=== PATIENT | female | born 1970 | race Caucasian/White ===

== ENCOUNTER → 2023-09-01 08:39 | Outpatient (REF) | payer OTHER, SELFPAY | LOC: WDC 08:39 | PROVIDERS: ATTENDING PHYSICIAN Obstetrics & Gynecology; FAMILY PHYSICIAN Family Medicine | DX: R92.2 Inconclusive mammogram (principal) | CPT/HCPCS: 76641 ==

== ENCOUNTER 2023-10-24 18:23 | Inpatient (IN) | payer OTHER, SELFPAY ==
[2023-10-24 15:24] VITALS: BP 180/99
[2023-10-24 16:01] LABS: Urine Albumin Negative (Neg - Trace); Urine Bilirubin Negative (Negative); Urine Character Clear (Clear); Urine Color Yellow; Urine Glucose Negative (Negative); Urine Ketone Negative (Negative); Urine Leukocyte Negative (Negative); Urine Nitrite Negative (Negative); Urine Occult Blood 4+ (Negative); Urine Specific Gravity 1.005 (<1.030); Urine Urobilinogen Negative (Neg - 1+)
[2023-10-24 16:01] LABS: % Basophils 0.7 % (0-2); % Eosinophils 1.1 % (0-6); % Immature Granulocytes 0.2 % (0-0.5); % Lymphocytes 27.7 % (20.5-51.1); % Monocytes 8.9 % (1.7-9.3); % Neutrophils 61.4 % (42.2-75.2); Absolute Eosinophils 0.1 10^3/uL (0-0.7); Absolute Lymphocytes 1.5 10^3/uL (1.2-3.4); Absolute Monocytes 0.5 10^3/uL (0.1-0.6); Absolute Neutrophils 3.3 10^3/uL (1.4-6.5); Hematocrit 36.9 % (37.0-47.0); Hemoglobin 12.7 g/dL (12.0-16.0); Mean Corp Hgb Conc. 34.4 g/dL (33.0-37.0); Mean Corpuscular Hgb 28.5 pg (27.0-31.0); Mean Corpuscular Volume 82.7 fL (81.0-99.0); Mean Platelet Volume 9.8 fL (7.4-10.4); Nucleated Red Blood Cells % 0 %; Platelet Count 266 10^3/uL (130-400); Red Blood Cell Count 4.46 10^6/uL (4.20-5.40); Red Cell Dist. Width 12.8 % (11.5-14.5); White Blood Cell Count 5.4 10^3/uL (4.8-10.8)
[2023-10-24 16:10] LABS: HCG, Serum Qualitative Screen Negative
[2023-10-24 16:11] LABS: ALT (SGPT) 21 U/L (0-35); AST (SGOT) 25 U/L (14-36); Albumin 4.5 g/dl (3.5-5.0); Alkaline Phosphatase 112 U/L (38-126); Blood Urea Nitrogen 14 mg/dl (7-17); Calcium 9.8 mg/dl (8.4-10.2); Carbon Dioxide 25 mmol/L (22-30); Chloride 100 mmol/L (98-107); Glucose 139 mg/dl (70-99); Sodium 136 mmol/L (135-145); Total Bilirubin 0.5 mg/dl (0.2-1.3); Total Protein 7.5 g/dl (6.3-8.2); eGFR > 60.00
[2023-10-24 16:18] LABS: Urine White Cell 0-2 /HPF (0-5)
[2023-10-24 16:19] LABS: Urine Bacteria Few (Negative)
[2023-10-24 16:23] LABS: Troponin I < 0.012 ng/ml
[2023-10-24 16:34] VITALS: BP 140/89
[2023-10-24 16:36] VITALS: BMI 28.4
[2023-10-24 16:41] LABS: TSH Reflex To Free T4 1.12 uIU/ml (0.47-4.68)
--- NOTE | 2023-10-24 17:25 | ED.GENMED ---
History of Present Illness
General
Chief Complaint: Fainting/Passed Out
Source: patient, spouse and ambulance crew
Exam Limitations: none
Time Seen by Provider: 10/24/23 16:25
Nursing documentation reviewed up to this point in time: agreed with
Travel History
Have you had any contact with someone who has COVID-19?: No
Do you have any symptoms of coronavirus? Fever > 100 degrees, chills, cough, shortness of breath, sore throat, loss of taste or smell, muscle aches, or headache?: No
History of Present Illness
History of Present Illness:
53-year-old female with no reported chronic medical issues presents to the emergency room for evaluation after presyncopal event complaining of palpitations. Patient reports that she was eating lunch with her daughters and had sudden onset of
lightheadedness and felt as if she was going to pass out. She says she felt like her heart was racing and beating very hard. She says that she had her Apple Watch on and it alerted her that her heart rate was over 130. Symptoms did not pass after
a few minutes and so EMS was called to the scene. On examining her health alessandro on her phone she seems to have had elevated heart rate to a max of 130 with tachycardia lasting for about an hour this afternoon. Unfortunately no rhythm strips taken
for review. Here in the emergency room she says she is still having occasional palpitations but she normally feels dizzy. She did not have and has not had any chest pain. She denies shortness of breath. She denies any edema in her legs. She
says she has had intermittent palpitations for the past few months and in fact had an outpatient echocardiogram in July that she was told was reassuring.
Review of Systems
Review of Systems
All Other Systems: ROS reviewed and negative except as documented in HPI and ROS
Constitutional: Denies fever or chills
EENT: Denies sore throat or runny nose
Respiratory: Denies cough or trouble breathing
Cardiac: Reports palpitations and syncope (Presyncope); Denies chest pain or diaphoresis
ABD/GI: Denies abdominal pain, nausea or vomiting
: Denies flank pain
Musculoskeletal: Denies edema, neck pain or back pain
Neurological: Reports dizzy; Denies headache, weakness or numbness
Phy Exam
Physical Exam
Physical Exam:
General: Awake, alert, oriented x3; anxious but no acute distress
Head: Normocephalic, atraumatic
Eyes: Conjunctiva normal, EOMI
Throat: Airway intact, handling secretions
Neck: Trachea midline, supple without meningismus
Lungs: Clear to auscultation bilaterally, no wheezing, rales, rhonchi
Heart: Regular rate and rhythm with occasional ectopy, no murmurs, gallops, or rubs
Abd: Soft, non distended, nontender
Neuro: Cranial nerves grossly intact, speech fluid
Skin: no rash
Extremities: No edema in extremities, equal pulses in all extremities
Scores
Heart Failure Risk
Heart Failure Risk Score: Not Applicable
Heart Score for Chest Pain Patients
STEMI patient?: Not applicable
Withdrawal Assessment of Alcohol
Withdrawal Assessment Completed?: Not applicable
Course
Orders/Labs/Results
Orders:
Orders
10/24/23 15:24
Electrocardiogram (*1) Urgent
Reason for Study: Vertigo / Dizzy
EKG- Treatment ONCE
10/24/23 15:38
Test Result ONCE
10/24/23 15:44
Complete Blood Count/With Diff Urgent
TSH Reflex To Free T4 Urgent
Troponin I Urgent
10/24/23 15:45
Comprehensive Metabolic Panel Urgent
HCG, Serum Qualitative Screen Urgent
Urinalysis Reflex To Culture Urgent
Date Specimen was Collected: 10/24/23
Time Specimen was Collected: 15:38
Urine Microscopic Reflex Cult Urgent
10/24/23 17:15
CARDIOLOGY CONSULT Urgent
Consulting Provider: Art Guidry
Was physician already notified: Yes
Abnormal Lab Results
10/24/23 10/24/23
15:44 15:45
Hct 36.9 L %
(37.0-47.0)
Glucose 139 H mg/dl
(70-99)
Ur Occult Blood Reflex 4+ A
(Negative)
Urine RBC 7-10 A /HPF
(0-2)
Urine Bacteria (Reflex) Few A
(Negative)
10/24/23 15:44
10/24/23 15:45
Vital Signs
Initial and Last Documented VS:
Initial Vital Signs
Temp Pulse Resp BP Pulse Ox
36.8 C 85 20 180/99 100
10/24/23 15:24 10/24/23 15:24 10/24/23 15:24 10/24/23 15:24 10/24/23 15:24
Last Documented Vital Signs
Temp Pulse Resp BP Pulse Ox
36.8 C 78 16 140/89 99
10/24/23 15:24 10/24/23 16:45 10/24/23 16:45 10/24/23 16:34 10/24/23 16:45
MDM/Problems Addressed
Differential Diagnosis Includes:
PVCs, PACs, A-fib/flutter, SVT, panic attack
MDM/Problems Addressed:
53-year-old female presents to the emergency room for evaluation of palpitations and episode of presyncope associated with significant tachycardia. Symptoms improved on arrival here. She was hypertensive in triage normalized by my assessment rest
of vitals normal. EKG shows a sinus rhythm with some inferior lateral Q waves and scooped ST depressions�no priors available for comparison. Lab work sent off including a CBC and a CMP which were unremarkable. Her troponin is undetectable. hCG
negative. Thyroid studies normal. With tachycardia and abnormal EKG will plan for admission for observation on telemetry and cardiology consultation. Discussed with cardiology for consult. Discussed with hospitalist for admission.
Acute Exacerbation and/or Progression of Chronic Illness:
Acutely hypertensive
Acute Exacerbation and/or Progression of Chronic Illness: HTN
*Pulse Oximetry
Patient hypoxic: no
*EKG
Interpreted by ED Provider?: Yes
Heart Rate: 95
Rate: normal
Rhythm: sinus
[place]: normal axis
Interval: normal interval
QRS Pattern: normal QRS
Ischemia: non-specific ST changes
*Critical Care Note
Total Time (30-74mins, 75-104mins- exclusive of procedures): Not Applicable
Data Reviewed
Review of Other/Old Records Reveals: Labs and Records
Source: patient, spouse and ambulance crew
Patient Management
Discussion with other providers: Hospitalist (Discussed with hospitalist) and Renewable Energy Engineer (Discussed with cardiology)
Escalation/DeEscalation of care consider admission/obs:
Admission indicated
ED Attending Note
-
Portions of this chart may have been created with voice recognition software.� Occasional wrong word or��sound alike� substitutions may have occurred due to the inherent limitations of voice recognition software.
Discharge Plan
Departure
Patient Disposition: Admit
Date of Disposition: 10/24/23
Time of Disposition: 17:24
Admit to doctor: Do
Presentation/result/management discussed w/ accepting MD/DO: Hospitalist
Discharge Problem:
Pre-syncope, Heart palpitations, Abnormal EKG
Prescriptions:
No Action
Vitamins 1 TAB tablet
Referrals:
NONE,* [Family Provider] -
Interventions
Interventions:
*Risk Screen - Suicide Last Done: 10/24/23 16:36
*General Assessment Last Done: 10/24/23 16:36
*Neglect/Abuse Screening Last Done: 10/24/23 16:36
ED- Fall Risk Assessment Last Done: 10/24/23 16:36
*ED COVID-19 Vaccine History Last Done: 10/24/23 16:36
ED- Cardiac Assessment Last Done: 10/24/23 16:36
ED- Neurological Assessment Last Done: 10/24/23 16:36
--- NOTE | 2023-10-24 17:57 | HPS.HSE ---
Family Physician
-
Family Physician: Neelam Peters
Chief Complaint
-
palpitatations
History of Present Illness
53-year-old female no past medical history of presenting for palpitations and near syncopal episode while in a restaurant today. She has been having palpitations for the past several weeks without associated dizziness but today symptoms are more
severe. She felt like she was going to pass out and palpitations lasted for an hour as per her Apple Watch. She denies any chest pain or shortness of breath. Currently her heart rate is improved she feels tired but denies any other symptoms
currently.
She saw her primary care physician few weeks ago who performed EKG and found patient to have PACs and PVCs.
She had an echocardiogram last due to primary care physician hearing a murmur on examination but echocardiogram was unremarkable.
She denies any smoking, drugs or alcohol use.
Denies any family history of heart conditions.
Medical History
Past Medical History
Past Medical History: Reports None
Past Surgical History: Reports Other (Rotator cuff tear, right foot stress fracture, x 3, right shoulder surgery,)
Social History
Tobacco: Non-smoker
Alcohol: None
Drug: None
Family History
Family History: Not pertinent
Allergies / Home Medications
Allergies reflects when Allergies were last updated in [email or web address].
Home Medications with original date entered in [email or web address]
Allergy/Medication List:
Allergies
Allergy/AdvReac Type Severity Reaction Status Date / Time
oxycodone HCl [From Percocet] Allergy Intermediate Rash Verified 10/24/23 15:24
acetaminophen [From Percocet] Allergy Unknown Verified 10/24/23 15:24
Home Medications
multivitamin 1 tab PO DAILY 10/24/23
Review of Systems
-
History Source: Patient
A 12 point ROS was completed and negative except as noted: Yes
Constitutional: Reports No Symptoms
EENT: Reports No Symptoms
Respiratory: Reports See HPI
Cardiac: Reports See HPI
Abdomen/GI: Reports No Symptoms
: Reports No Symptoms
Musculoskeletal: Reports No Symptoms
Skin: Reports No Symptoms
Neurological: Reports No Symptoms
Endocrine: Reports No Symptoms
Hematologic/Lymphatic: Reports No Symptoms
Psych: Reports No Symptoms
Physical Exam
Vital Signs
Vital Signs
Temp Pulse Resp BP Pulse Ox
98.2 F 78 16 140/89 99
10/24/23 15:24 10/24/23 16:45 10/24/23 16:45 10/24/23 16:34 10/24/23 16:45
Physical Exam
General: Well Developed, Well Nourished and No Apparent Distress
HEENT: NormoCephalic, Moist mucous membranes and Atraumatic
Respiratory: Clear
Cardiac: S1/S2 and Regular Rhythm; No Murmur or Rub
GI: Soft, Non Tender, Non Distended and Normal Bowel Sounds; No Organomegaly
Rectal: Deferred by Provider
Musculoskeletal: No Clubbing, No Cyanosis and No Edema
Skin: No Rash
Neuro: Nonfocal/grossly intact
Laboratory Results
-
10/24/23 15:44
10/24/23 15:45
Laboratory Results
Total Bilirubin 0.5 mg/dl (0.2-1.3) 10/24/23 15:45
AST 25 U/L (14-36) 10/24/23 15:45
ALT 21 U/L (0-35) 10/24/23 15:45
Alkaline Phosphatase 112 U/L (38-126) 10/24/23 15:45
Troponin I < 0.012 ng/ml 10/24/23 15:44
Data Reviewed
-
Lab Data: Labs Reviewed by me
Old Records: Reviewed
Impression/Plan
-
IMPRESSION:
PLAN:
# Palpitations/presyncopal episode
# PACs/PVCs
-EKG shows normal sinus rhythm with ST elevations in lead V2
-Troponin negative
-Telemetry monitoring currently shows some PACs/PVCs
-Prior echo from July of last year shows EF of 55 to 60%
-TSH 1.12
-Check chest x-ray
-give dose of lopressor 25 mg
-Cardiology consulted
Full code
DVT prophylaxis�heparin
Regular diet
[2023-10-24] MEDS: LOPRESSOR 25 MG PO (18:30)
[2023-10-24 19:17] VITALS: BP 132/86
[2023-10-24 19:49] VITALS: BP 138/88; BMI 26.9
[2023-10-24] MEDS: HEPARIN 5000 UNITS SC (20:25)
[2023-10-24 23:09] VITALS: BP 116/69
[2023-10-25 03:24] VITALS: BP 105/64
--- NOTE | 2023-10-25 04:07 | DOWNTIME ---
There was a [employer] Client B[employer] Mechanic Downtime on 10/25/2023 from 0100 to 10/25/2023 at 0322. Downtime documentation of patient's care, including medication administrations, has been reconciled in the electronic record per guidelines. Refer to the
patient's paper chart under the miscellaneous tab to see printed paper medication records and downtime forms.
[2023-10-25 04:56] LABS: % Basophils 0.9 % (0-2); % Eosinophils 1.1 % (0-6); % Immature Granulocytes 0.2 % (0-0.5); % Lymphocytes 32.8 % (20.5-51.1); % Monocytes 10.9 % (1.7-9.3); % Neutrophils 54.1 % (42.2-75.2); Absolute Basophils 0.1 10^3/uL (0-0.2); Absolute Eosinophils 0.1 10^3/uL (0-0.7); Absolute Lymphocytes 1.8 10^3/uL (1.2-3.4); Absolute Monocytes 0.6 10^3/uL (0.1-0.6); Absolute Neutrophils 2.9 10^3/uL (1.4-6.5); Mean Corp Hgb Conc. 34.3 g/dL (33.0-37.0); Mean Corpuscular Hgb 28.7 pg (27.0-31.0); Mean Corpuscular Volume 83.7 fL (81.0-99.0); Mean Platelet Volume 10.2 fL (7.4-10.4); Nucleated Red Blood Cells % 0 %; Platelet Count 252 10^3/uL (130-400); Red Blood Cell Count 4.18 10^6/uL (4.20-5.40); Red Cell Dist. Width 12.9 % (11.5-14.5); White Blood Cell Count 5.4 10^3/uL (4.8-10.8)
[2023-10-25 05:32] LABS: ALT (SGPT) 20 U/L (0-35); AST (SGOT) 24 U/L (14-36); Albumin 3.7 g/dl (3.5-5.0); Alkaline Phosphatase 112 U/L (38-126); Blood Urea Nitrogen 14 mg/dl (7-17); Calcium 9.3 mg/dl (8.4-10.2); Carbon Dioxide 22 mmol/L (22-30); Chloride 103 mmol/L (98-107); Estimated Creatinine Clearance 89 ml/min; Glucose 107 mg/dl (70-99); Potassium 4.1 mmol/L (3.5-5.1); Sodium 135 mmol/L (135-145); Total Bilirubin 0.3 mg/dl (0.2-1.3); Total Protein 6.4 g/dl (6.3-8.2); eGFR > 60.00
--- NOTE | 2023-10-25 07:20 | W.PN.HOSP.TC ---
Today's Communication/Plan
-
Cardiology evaluation.
Assessment / Plan
Assessment / Plan
Physical exam:
General: Well Developed, Well Nourished and No Apparent Distress
HEENT: Normocephalic, Atraumatic and Moist Mucous Membranes
Respiratory: Clear to Auscultation; Negative Wheezes, Rales or Rhonchi
Cardiac: Regular Rhythm and S1/S2
GI: Soft, Nontender and Nondistended
Musculoskeletal: No Clubbing, No Cyanosis and No Edema
Neuro: Awake, Alert and Oriented
Psych: Calm
A/P:
# Palpitations/presyncopal episode
# PACs/PVCs
-EKG shows normal sinus rhythm with ST elevations in lead V2
-Review of watch shows some sinus tachycardia
-Troponin negative
-Telemetry monitoring currently shows some PACs/PVCs
-Prior echo from July of last year shows EF of 55 to 60%
-TSH 1.12
-Checked chest x-ray
-give dose of lopressor 25 mg
-Cardiology consulted--> recommended checking D-dimer, echocardiogram EKG, and second troponin. If workup negative possible discharge today with outpatient cardiac monitoring. Echocardiogram normal ejection fraction and no abnormalities, normal
second troponin, normal D-dimer. Cardiology clearing her for discharge.
Full code
DVT prophylaxis�heparin
Regular diet
Anticipated Discharge: Today
Subjective/Interval History
-
Date of Service: October 25, 2023
Patient with complaint of intermittent palpitations. Relatively asymptomatic this morning.
Objective Data
-
Labs:
Laboratory Results
10/25/23
03:59
WBC 5.4
Hgb 12.0
Hct 35.0 L
Plt Count 252
Sodium 135
Potassium 4.1
Chloride 103
Carbon Dioxide 22
BUN 14
Creatinine 0.8
Glucose 107 H
Calcium 9.3
Total Bilirubin 0.3
AST 24
ALT 20
Alkaline Phosphatase 112
Vital Signs:
Vital Signs
Temp Pulse Resp BP Pulse Ox
98.5 F 63 16 105/64 98
10/25/23 03:24 10/25/23 03:24 10/25/23 03:24 10/25/23 03:24 10/25/23 03:24
I&O
10/24/23 10/25/23 10/26/23
06:59 06:59 06:59
Intake Total 440 / 440
Balance 440 / 440
[2023-10-25 08:17] VITALS: BP 122/86
[2023-10-25] MEDS: HEPARIN 5000 UNITS SC (09:05)
[2023-10-25] MEDS: THERAGRAN 1 TABLET PO (09:05)
--- NOTE | 2023-10-25 10:06 | W.PN.CD ---
Addendum entered and electronically signed by Erwin Choi MD 10/25/23 17:49:
D-dimer, repeat troponin, echocardiogram, and repeat EKG all fine.
Patient located single-lead EKG strip obtained with symptoms in the restaurant. I reviewed that prescription. Sinus tachycardia in the 130s.
Etiology of her symptoms is still unclear but I do not suspect cardiac ischemia, arrhythmia, or pulmonary embolism. I do not think she needs further outpatient telemetry as she has the ability to monitor EKG strip as needed. Will ask her to see
Dr. Cid in routine follow-up in 3 months or sooner if needed.
Original Note:
Today's Communication / Plan
-
-
Consult to be dictated
-
Check D-Dimer, echo, second troponin and ekg today
If all negative then home with plans for outpatient telemetry
-
-
Impression / Plan
-
Presyncope => uncertain etiology
Palpitations => uncertain etiology
Abnl EKG => rightward axis, [id number] raises question of pulm embolus
Physical Exam
Vital Signs/Labs
Vital Signs
Temp Pulse Resp BP Pulse Ox
98.8 F 73 16 122/86 97
10/25/23 08:17 10/25/23 08:17 10/25/23 08:17 10/25/23 08:17 10/25/23 08:17
10/24/23 10/25/23 10/26/23
06:59 06:59 06:59
Actual Weight 86.319 kg
10/25/23 03:59
10/25/23 03:59
LAB Results
10/24/23
15:44
Troponin I < 0.012
Data Reviewed
-
Date of Service: October 25, 2023
--- NOTE | 2023-10-25 10:54 | CM ---
Initial assessment completed with patient who lives with her and 3 children (16,15,12 y/o) in a 2 story home with basement and 3 steps to enter, B/B on with 1/2 bath on . 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 No DME or
in-home services. Pharmacy is [facility] in [place] and PCP is Dr. Neelam Weldon. Anticipate home with no needs.
[2023-10-25 11:11] LABS: D-Dimer 0.33 ug/mlFEU (0.00-0.50)
[2023-10-25 11:20] LABS: Troponin I < 0.012 ng/ml
[2023-10-25 12:16] VITALS: BP 137/81
--- NOTE | 2023-10-25 12:36 | W.DCSUMMARY ---
Discharge Summary
Discharge Data
Date of Admission: 10/24/23
Date of Discharge: 10/25/23
-
Pending Results: No
Hospital Course
Patient 53 years old female with no past medical came into the hospital with palpitations. Cardiology consulted. Cardiac enzymes unremarkable, echocardiogram EF 55 to 60% and normal diastolic function and no significant valvulopathy. D-dimer
within normal limits. TSH normal, hCG negative, hemoglobin 12, creatinine 0.8 electrolytes within normal limits. Will have her follow-up outpatient with PCP and cardiology. Cardiology cleared for discharge today.
Discharge Plan
-
Patient Disposition: Home (Routine Discharge)
Discharge Diagnosis/Procedures: Palpitations.
Diet: Low Cholesterol
Activity: As tolerated
Driving Restrictions: As prior to admission
Blood Work: Please PCP to order CBC, BMP within 1 week
Referrals:
Neelam Peters MD [Family Provider] - in less than 1 week
Erwin Choi MD [Active] - in one to two weeks
Prescriptions:
Continued
multivitamin Tablet
1 tab PO DAILY
Discharge Orders:
Discharge Patient (As Directed); Ordered 10/25/23
Ordered By: Colin Cárdenas
Discharge Date and Time
Print Language: FRENCH
--- NOTE | 2023-10-25 13:11 | CM ---
Patient has been medically cleared for discharge to home with no additional skilled services. Patient has arranged for transport home.
--- NOTE | 2023-10-25 13:50 | PTCARENOTE ---
All tests negative (Cardiology and Hospitalist updated). Patient ready for discharge, instructions given, reviewed and signed.
== END 2023-10-25 14:21 | disposition home or self-care (01) | DRG 310 ==
LOC: 2 NORTH 18:23
PROVIDERS: Emergency Medicine; ADMITTING PHYSICIAN Hospitalist; ATTENDING PHYSICIAN Hospitalist; EMERGENCY PHYSICIAN Emergency Medicine; FAMILY PHYSICIAN Family Medicine; OTHER PHYSICIAN Internal Medicine Cardiovascular Disease
DX: R00.2 Palpitations (principal); R55 Syncope and collapse; Z88.6 Allergy status to analgesic agent; Z88.5 Allergy status to narcotic agent
CPT/HCPCS: 71046; 80053; 81003; 81015; 84443; 84484; 84703; 85025; 85379; 93005; 93306; 99285

== ENCOUNTER → 2024-03-04 13:44 | Outpatient (REF) | payer OTHER, SELFPAY | LOC: WDC 13:44 | PROVIDERS: ATTENDING PHYSICIAN Obstetrics & Gynecology | DX: R92.8 Other abnormal and inconclusive findings on diagnostic imaging of breast (principal) | CPT/HCPCS: 76642 ==

== ENCOUNTER → 2024-04-18 12:02 | Outpatient (REF) | payer OTHER, SELFPAY | LOC: WDC 12:02 | PROVIDERS: ATTENDING PHYSICIAN Obstetrics & Gynecology; FAMILY PHYSICIAN Family Medicine | DX: Z12.31 Encounter for screening mammogram for malignant neoplasm of breast (principal) | CPT/HCPCS: 77063; 77067 ==

== ENCOUNTER → 2024-09-04 07:52 | Outpatient (REF) | payer OTHER, SELFPAY | LOC: WDC 07:52 | PROVIDERS: ATTENDING PHYSICIAN Obstetrics & Gynecology; FAMILY PHYSICIAN Family Medicine | DX: R92.2 Inconclusive mammogram (principal); R92.8 Other abnormal and inconclusive findings on diagnostic imaging of breast | CPT/HCPCS: 76641 ==

== ENCOUNTER → 2025-03-11 07:57 | Outpatient (REF) | payer OTHER, SELFPAY | LOC: WDC 07:57 | PROVIDERS: ATTENDING PHYSICIAN Obstetrics & Gynecology; FAMILY PHYSICIAN Family Medicine | DX: R92.8 Other abnormal and inconclusive findings on diagnostic imaging of breast (principal) | CPT/HCPCS: 76642 ==

== ENCOUNTER → 2025-04-22 13:13 | Outpatient (REF) | payer OTHER, SELFPAY | LOC: WDC 13:13 | PROVIDERS: ATTENDING PHYSICIAN Obstetrics & Gynecology; FAMILY PHYSICIAN Family Medicine | DX: Z12.31 Encounter for screening mammogram for malignant neoplasm of breast (principal) | CPT/HCPCS: 77063; 77067 ==